=== PATIENT | female | born 1975 | race Two or more races ===

== ENCOUNTER 2022-02-14 04:22 | Emergency (ER) | payer OTHER ==
[2022-02-14 04:43] VITALS: BP 155/101; PULSE 81; RESP 19; TEMP 98; BMI 33.6
[2022-02-14 05:46] LABS: HEMOGLOBIN 11.7 GM/dL (10.7-15.3); RBC 4.23 M/mm3 (3.60-5.2)
[2022-02-14] MEDS ORDERED: ACETAMINOPHEN 500 MG TABLET (FP) PO ONE (05:57)
[2022-02-14 06:04] LABS: ALBUMIN 3.3 g/dl (3.4-5.0); CALCIUM 8.9 mg/dL (8.5-10.1)
[2022-02-14] MEDS ORDERED: ACETAMINOPHEN 500 MG TABLET (FP) ONE (06:04)
[2022-02-14 06:05] LABS: BLOOD UREA NITROGEN 17.8 mg/dL (7-18)
[2022-02-14 06:07] LABS: CREATININE 0.7 mg/dL (0.55-1.3)
[2022-02-14 06:09] LABS: BILIRUBIN,TOTAL 0.3 mg/dL (0.2-1); TOT PROT 6.9 g/dl (6.4-8.2)
[2022-02-14 06:10] LABS: BASO % 0.6 % (0-2.0); EOS % 1.8 % (0-4.5); HEMATOCRIT 36.3 % (32.4-45.2); LYMPH % 33.9 % (8-40); MCH 27.6 pg (25.7-33.7); MCHC 32.1 g/dl (32.0-36.0); MEAN CELL VOLUME 85.8 fl (80-96); MEAN PLT VOLUME 9.8 fl (7.5-11.1); MONO % 10.3 % (3.8-10.2); NEUT % 53.4 % (42.8-82.8); PLATELET COUNT 224 10^3/uL (134-434); RDW 13.4 % (11.6-15.6); WHITE BLOOD COUNT 5.2 K/mm3 (4.0-10.0)
[2022-02-14 06:43] LABS: PROTHROMBIN TIME (PATIENT) 11.5 SEC (9.7-13.0)
[2022-02-14 06:46] LABS: ACTIVATED PTT 33.1 SECONDS (25.2-36.5)
== END 2022-02-14 07:08 | disposition home or self-care (01) ==
LOC: JER 04:22
DX: R07.9 Chest pain, unspecified (principal); R51.9 Headache, unspecified
CPT/HCPCS: 0241U-QW; 36415; 71046-TC-FY; 80053; 84484; 85025; 85610; 85730; 93005; 93010; 99285-25

== ENCOUNTER 2023-11-14 05:27 | Emergency (ER) | payer OTHER ==
[2023-11-14 05:32] VITALS: BP 118/77; PULSE 82; RESP 18; TEMP 98.6; BMI 33.6
[2023-11-14] MEDS ORDERED: ACETAMINOPHEN INJECTION 100 ML ONE (06:28)
[2023-11-14] MEDS: ACETAMINOPHEN 1000 MG/100 ML BAG IVPB ONE (06:44)
[2023-11-14 06:52] LABS: EOS % 1.9 % (0-4.5); HEMATOCRIT 37.9 % (32.4-45.2); HEMOGLOBIN 12.4 GM/dL (10.7-15.3); LYMPH % 34.6 % (8-40); MCH 28.4 pg (25.7-33.7); MCHC 32.7 g/dl (32.0-36.0); MONO % 11.8 % (3.8-10.2); NEUT % 50.7 % (42.8-82.8); PLATELET COUNT 225 10^3/uL (134-434); RBC 4.35 M/mm3 (3.60-5.2); RDW 13.2 % (11.6-15.6); WHITE BLOOD COUNT 4.8 K/mm3 (4.0-10.0)
[2023-11-14 07:09] LABS: INR 0.99 (0.83-1.09); PROTHROMBIN TIME (PATIENT) 11.4 SEC (9.7-13.0)
[2023-11-14 07:12] LABS: ACTIVATED PTT 35.4 SECONDS (25.2-36.5)
[2023-11-14 07:27] LABS: POTASSIUM 4.1 mmol/L (3.5-5.1)
[2023-11-14 07:29] LABS: ALBUMIN 3.6 g/dl (3.4-5.0); BLOOD UREA NITROGEN 16.3 mg/dL (7-18); CALCIUM 8.7 mg/dL (8.5-10.1)
[2023-11-14 07:33] LABS: CREATININE 0.8 mg/dL (0.55-1.3)
[2023-11-14 07:34] LABS: BILIRUBIN,TOTAL 0.4 mg/dL (0.2-1); TOT PROT 7.2 g/dl (6.4-8.2)
[2023-11-14 12:31] LABS: HIV INTERPRETATION NEGATIVE (NEGATIVE)
== END 2023-11-14 09:06 | disposition home or self-care (01) ==
LOC: JERFT 05:27 → JER 05:27 → JERFT 09:06
PROC: 3E033NZ Introduction of Analgesics, Hypnotics, Sedatives into Peripheral Vein, Percutaneous Approach (ICD-10-PCS; principal; 2023-11-14)
DX: R07.89 Other chest pain (principal); R05.9 Cough, unspecified
CPT/HCPCS: 36415; 71046-TC-FY; 80053; 84484; 84703; 85025; 85610; 85730; 86803; 87389; 93005; 93010; 99285-25; J0131